=== PATIENT | male | born 1955 | race Caucasian/White ===

== ENCOUNTER 2024-07-14 19:07 | Inpatient (IN) | payer MEDICARE, OTHER ==
[~2024-07-14] VITALS: Ht 180.3 cm; Wt 67.1 kg
[2024-07-14] MEDS ORDERED: QUET50TA15 PO (19:32)
[2024-07-14] MEDS ORDERED: MAG HYDROX/AL HYDROX/SIMETH 30 ML LIQUID UDC PO PRN (23:45)
[2024-07-14] MEDS ORDERED: CLONAZEPAM 0.5 MG TABLET PO PRN (23:45)
[2024-07-14] MEDS ORDERED: MAGNESIUM HYDROXIDE 30 ML LIQUID UDC PO PRN (23:45)
[2024-07-15] MEDS: CLONAZEPAM 0.5 MG TABLET PO PRN (00:11)
[2024-07-15] MEDS: BLOOD SUGAR DIAGNOSTIC 1 EACH STRIP VI ONE (00:20)
[2024-07-15] MEDS: TEMAZEPAM 7.5 MG CAPSULE PO PRN ×2 (01:28→21:01)
[2024-07-15 09:15] VITALS: BP 160/97; TEMP 98; O2SAT 98
[2024-07-15] MEDS: OLANZAPINE 10 MG VIAL IM ONE ×2 (11:00→17:19)
[2024-07-15] MEDS: risperiDONE 0.5 MG TABLET PO SCH (14:03)
[2024-07-15 15:19] VITALS: BP 124/67; TEMP 98; O2SAT 98
[2024-07-15 20:00] VITALS: BP 109/80; TEMP 98.9; O2SAT 96
[2024-07-15] MEDS: QUETIAPINE FUMARATE 25 MG TABLET PO SCH (20:14)
[2024-07-15] MEDS ORDERED: LORAZEPAM 1 MG TABLET PO PRN (21:15)
[2024-07-16 07:55] LABS: BASOPHILS % (AUTO) 0.5 % (0.0-2.0); EOSINOPHILS # (AUTO) 0.2 K/uL (0.0-0.7); EOSINOPHILS % (AUTO) 2.2 % (0.0-7.0); HEMATOCRIT 35.6 % (36.7-47.1); HEMOGLOBIN 11.9 g/dL (12.5-16.3); LYMPHOCYTES # (AUTO) 1.4 K/uL (0.8-4.8); MEAN CORPUSCULAR HEMOGLOBIN 30.2 uug (23.8-33.4); MEAN CORPUSCULAR HGB CONC 34 g/dL (32.5-36.3); MEAN CORPUSCULAR VOLUME 90.1 fL (73.0-96.2); MONOCYTES # (AUTO) 0.9 K/uL (0.1-1.30); MONOCYTES % (AUTO) 9.9 % (0.0-11.0); NEUTROPHILS # (AUTO) 6.2 K/uL (1.8-8.9); NEUTROPHILS % (AUTO) 71.4 % (38.5-71.5); PLATELET COUNT (AUTO) 385 K/uL (152-348); RED BLOOD CELL COUNT(AUTO) 3.95 MIL/uL (4.06-5.63); RED CELL DISTRIBUTION WIDTH 13.9 % (12.1-16.2); WHITE BLOOD COUNT (AUTO) 8.6 K/uL (3.6-10.2)
[2024-07-16 08:03] LABS: DIFFERENTIAL COMMENT 1
[2024-07-16 08:05] LABS: ALBUMIN 3.8 g/dL (3.4-5.0); BILIRUBIN,TOTAL 0.6 mg/dL (0.2-1.0); CALCIUM 9.3 mg/dL (8.5-10.1); CREATININE 0.7 mg/dL (0.6-1.3); MAGNESIUM 1.8 mg/dL (1.8-2.4); PHOSPHOROUS 3.8 mg/dL (2.5-4.9); TOTAL PROTEIN, SERUM 7.5 g/dL (6.4-8.2)
[2024-07-16] MEDS: HALOPERIDOL LACTATE 5 MG/1 ML VIAL IM ONE (08:20)
[2024-07-16] MEDS: LORAZEPAM 2 MG/1 ML VIAL IM ONE (08:21)
[2024-07-16] MEDS: diphenhydrAMINE 50 MG/1 ML VIAL IV ONE (08:21)
[2024-07-16 08:23] LABS: THYROID STIMULATING HORMONE 0.721 mIU/mL (0.358-3.740)
[2024-07-16 08:29] VITALS: BP 131/80; TEMP 98; O2SAT 98
[2024-07-16] MEDS ORDERED: risperiDONE 1 MG TABLET PO SCH (09:00)
[2024-07-16] MEDS: POTASSIUM CHLORIDE 10 MEQ TAB.PRT.SR PO SCH (10:00)
[2024-07-16] MEDS: DIVALPROEX SPRINKLE 125 MG CAP.SPRINK PO SCH (14:24)
[2024-07-16] MEDS: POTASSIUM CHLORIDE 20 MEQ POWDER PACKET PO ONE ×2 (14:24→15:27)
[2024-07-16 15:13] VITALS: BP 110/69; TEMP 98; O2SAT 96
[2024-07-16] MEDS: risperiDONE 1 MG TABLET PO SCH (16:31)
[2024-07-16] MEDS: LORAZEPAM 1 MG TABLET PO PRN (16:33)
[2024-07-16 20:00] VITALS: BP 138/81; TEMP 98.1; O2SAT 97
[2024-07-17 08:27] VITALS: BP 148/70; TEMP 97.8; O2SAT 96
[2024-07-17 16:21] VITALS: BP 154/82; TEMP 97.9; O2SAT 97
[2024-07-17] MEDS: LORAZEPAM 1 MG TABLET PO ONE (18:53)
[2024-07-17] MEDS: QUETIAPINE FUMARATE 100 MG TABLET PO SCH (20:17)
[2024-07-17 20:27] VITALS: BP 138/86; TEMP 98; O2SAT 98
[2024-07-17] MEDS: diphenhydrAMINE 50 MG/1 ML VIAL IM ONE (22:31)
[2024-07-17] MEDS: LORAZEPAM 2 MG/1 ML VIAL IM ONE (22:31)
[2024-07-17] MEDS: HALOPERIDOL LACTATE 5 MG/1 ML VIAL IM ONE (22:31)
[2024-07-18] MEDS: risperiDONE 1 MG TABLET PO SCH (12:20)
[2024-07-18] MEDS: diphenhydrAMINE 50 MG/1 ML VIAL IM ONE (13:35)
[2024-07-18] MEDS: HALOPERIDOL LACTATE 5 MG/1 ML VIAL IM ONE (13:36)
[2024-07-18] MEDS: LORAZEPAM 2 MG/1 ML VIAL IM ONE (13:36)
[2024-07-18 16:44] VITALS: BP 125/78; TEMP 98; O2SAT 97
[2024-07-18 20:17] VITALS: BP 136/76; TEMP 98.1; O2SAT 96
[2024-07-19] MEDS: DIVALPROEX SPRINKLE 125 MG CAP.SPRINK PO SCH (12:20)
[2024-07-19 16:35] VITALS: BP 118/70; TEMP 98.1; O2SAT 97
[2024-07-19 20:23] VITALS: BP 124/76; TEMP 98.1; O2SAT 95
[2024-07-20 07:41] VITALS: BP 115/79; TEMP 98; O2SAT 96
[2024-07-20 15:47] VITALS: BP 107/71; TEMP 98; O2SAT 96
[2024-07-20 20:21] VITALS: BP 117/73; TEMP 98.1; O2SAT 95
[2024-07-21 08:56] VITALS: BP 110/61; TEMP 98.2; O2SAT 96
[2024-07-21 15:39] VITALS: BP 113/66; TEMP 98; O2SAT 96
[2024-07-21 17:42] LABS: BASOPHILS % (AUTO) 0.3 % (0.0-2.0); EOSINOPHILS # (AUTO) 0.1 K/uL (0.0-0.7); EOSINOPHILS % (AUTO) 0.9 % (0.0-7.0); HEMATOCRIT 39.5 % (36.7-47.1); HEMOGLOBIN 12.9 g/dL (12.5-16.3); LYMPHOCYTES # (AUTO) 1.4 K/uL (0.8-4.8); LYMPHOCYTES % (AUTO) 11.6 % (20.5-51.5); MEAN CORPUSCULAR HEMOGLOBIN 29.5 uug (23.8-33.4); MEAN CORPUSCULAR HGB CONC 33 g/dL (32.5-36.3); MEAN CORPUSCULAR VOLUME 90.5 fL (73.0-96.2); MONOCYTES # (AUTO) 0.9 K/uL (0.1-1.30); MONOCYTES % (AUTO) 7.4 % (0.0-11.0); NEUTROPHILS # (AUTO) 9.9 K/uL (1.8-8.9); NEUTROPHILS % (AUTO) 79.8 % (38.5-71.5); PLATELET COUNT (AUTO) 391 K/uL (152-348); RED BLOOD CELL COUNT(AUTO) 4.36 MIL/uL (4.06-5.63); RED CELL DISTRIBUTION WIDTH 14.2 % (12.1-16.2); WHITE BLOOD COUNT (AUTO) 12.4 K/uL (3.6-10.2)
[2024-07-21 17:43] LABS: DIFFERENTIAL COMMENT 1
[2024-07-21 17:47] LABS: AMMONIA < 10 umol/L (11-32)
[2024-07-21 17:50] LABS: ALANINE AMINOTRANSFERASE 35 U/L (16-63); ALBUMIN 3.8 g/dL (3.4-5.0); ALKALINE PHOSPHATASE 77 U/L (50-136); ASPARTATE AMINOTRANSFERASE 16 U/L (15-37); BILIRUBIN,TOTAL 0.5 mg/dL (0.2-1.0); CALCIUM 9.5 mg/dL (8.5-10.1); CARBON DIOXIDE 31 mmol/L (21-32); CHLORIDE 101 mmol/L (98-107); CREATININE 0.8 mg/dL (0.6-1.3); GLUCOSE 127 mg/dL (74-106); POTASSIUM 3.8 mmol/L (3.5-5.1); SODIUM SERUM 140 mmol/L (136-145); TOTAL PROTEIN, SERUM 7.9 g/dL (6.4-8.2); UREA NITROGEN, BLOOD 15 mg/dL (7-18); VALPROIC ACID 50 ug/mL (50-100)
[2024-07-21 20:00] VITALS: BP 117/69; TEMP 98.1; O2SAT 97
[2024-07-21 23:50] LABS: *BLOOD, URINE NEGATIVE (NEGATIVE); *CLARITY,URINE CLEAR (CLEAR); *COLOR,URINE YELLOW (YELLOW); *KETONES,URINE 1+ (NEGATIVE); *PROTEIN,URINE NEGATIVE (NEGATIVE); LEUKOCYTE ESTERASE ,URINE NEGATIVE (NEGATIVE); NITRITE, URINE NEGATIVE (NEGATIVE); UGLUCOSE NEGATIVE (NEGATIVE)
[2024-07-22 00:24] LABS: *BILIRUBIN,URIN 1+ (NEGATIVE)
[2024-07-22 00:32] LABS: RBC,URINE 0-3 /HPF (0-3); SQUAMOUS EPITHELIAL CELL,UR MODERATE /HPF (NONE SEEN)
[2024-07-22 00:33] LABS: BACTERIA,URINE RARE /HPF (NONE SEEN); MUCUS,URINE MODERATE /LPF (0-FEW)
[2024-07-22] MEDS: ENSURE ENLIVE (VAN) 240 ML LIQUID PO SCH (08:00)
[2024-07-22 08:52] VITALS: BP 136/62; TEMP 98; O2SAT 98
[2024-07-22 15:57] VITALS: BP 100/69; TEMP 98; O2SAT 98
[2024-07-22] MEDS: risperiDONE 2 MG TABLET PO SCH (16:27)
[2024-07-22 20:00] VITALS: BP 113/70; TEMP 97.6; O2SAT 99
[2024-07-23 07:56] VITALS: BP 163/96; TEMP 98; O2SAT 98
[2024-07-23 15:49] VITALS: BP 124/70; TEMP 98; O2SAT 98
[2024-07-24 07:47] VITALS: BP 112/75; TEMP 98.1; O2SAT 97
[2024-07-24 16:54] VITALS: BP 119/82; TEMP 98.1; O2SAT 97
[2024-07-25] MEDS: DIVALPROEX SPRINKLE 125 MG CAP.SPRINK PO SCH (08:16)
[2024-07-25 17:01] VITALS: BP 103/69; TEMP 98.1; O2SAT 97
[2024-07-26 08:02] VITALS: BP 108/74; TEMP 98.3; O2SAT 97
[2024-07-26 08:16] LABS: BASOPHILS # (AUTO) 0.1 K/UL (0.0-0.2); BASOPHILS % (AUTO) 0.7 % (0.0-2.0); DIFFERENTIAL COMMENT 0; EOSINOPHILS # (AUTO) 0.1 K/uL (0.0-0.7); EOSINOPHILS % (AUTO) 1.1 % (0.0-7.0); HEMATOCRIT 36.1 % (36.7-47.1); HEMOGLOBIN 12.1 g/dL (12.5-16.3); LYMPHOCYTES # (AUTO) 1.5 K/uL (0.8-4.8); LYMPHOCYTES % (AUTO) 15.2 % (20.5-51.5); MEAN CORPUSCULAR HEMOGLOBIN 30.8 uug (23.8-33.4); MEAN CORPUSCULAR HGB CONC 34 g/dL (32.5-36.3); MEAN CORPUSCULAR VOLUME 91.9 fL (73.0-96.2); MONOCYTES # (AUTO) 0.9 K/uL (0.1-1.30); MONOCYTES % (AUTO) 9.3 % (0.0-11.0); NEUTROPHILS # (AUTO) 7.1 K/uL (1.8-8.9); NEUTROPHILS % (AUTO) 73.7 % (38.5-71.5); PLATELET COUNT (AUTO) 227 K/uL (152-348); RED BLOOD CELL COUNT(AUTO) 3.93 MIL/uL (4.06-5.63); RED CELL DISTRIBUTION WIDTH 14.3 % (12.1-16.2); WHITE BLOOD COUNT (AUTO) 9.6 K/uL (3.6-10.2)
[2024-07-26 08:24] LABS: CALCIUM 9.1 mg/dL (8.5-10.1); CARBON DIOXIDE 28 mmol/L (21-32); CHLORIDE 102 mmol/L (98-107); CREATININE 0.6 mg/dL (0.6-1.3); GLUCOSE 107 mg/dL (74-106); PHOSPHOROUS 4.2 mg/dL (2.5-4.9); SODIUM SERUM 137 mmol/L (136-145); UREA NITROGEN, BLOOD 18 mg/dL (7-18); VALPROIC ACID 57 ug/mL (50-100)
[2024-07-26 08:31] LABS: POTASSIUM 4.3 mmol/L (3.5-5.1)
[2024-07-26 16:41] VITALS: BP 114/63; TEMP 98.1; O2SAT 98
[2024-07-26 20:14] VITALS: BP 118/71; TEMP 98.1; O2SAT 96
[2024-07-26] MEDS: OLANZAPINE 5 MG TABLET PO SCH (22:25)
[2024-07-27] MEDS: LORAZEPAM 1 MG TABLET PO PRN (04:55)
[2024-07-27 07:54] VITALS: BP 119/71; TEMP 98; O2SAT 96
[2024-07-27] MEDS: LORAZEPAM 0.5 MG TABLET PO PRN (08:30)
[2024-07-27 15:58] VITALS: BP 106/57; TEMP 98; O2SAT 98
[2024-07-27 20:06] VITALS: BP 116/66; TEMP 98.2; O2SAT 96
[2024-07-28 10:47] VITALS: BP 111/69; TEMP 98; O2SAT 99
[2024-07-28 15:38] VITALS: BP 116/68; TEMP 98; O2SAT 99
[2024-07-28 20:00] VITALS: BP 136/73; TEMP 98; O2SAT 92
[2024-07-29 08:03] VITALS: BP 125/68; TEMP 98; O2SAT 96
[2024-07-29 16:08] VITALS: BP 99/68; TEMP 98; O2SAT 98
[2024-07-29 20:00] VITALS: BP 124/87; TEMP 98; O2SAT 93
[2024-07-29] MEDS: ACETAMINOPHEN 325 MG TABLET PO PRN (21:32)
[2024-07-30 08:42] VITALS: BP 117/57; TEMP 98; O2SAT 98
== END 2024-07-30 14:15 | disposition home or self-care (01) | DRG 885 ==
LOC: ER 19:11 → GPS 20:45
PROVIDERS: ADMIT Psychiatry & Neurology Psychiatry; ATTEND Nurse Practitioner Acute Care
DX: F29 Unspecified psychosis not due to a substance or known physiological condition (principal); F03.C11 Unspecified dementia, severe, with agitation; F03.C3 Unspecified dementia, severe, with mood disturbance; D63.8 Anemia in other chronic diseases classified elsewhere; E87.6 Hypokalemia; E86.0 Dehydration; Z91.199 Patient's noncompliance with other medical treatment and regimen due to unspecified reason; Z88.0 Allergy status to penicillin; Z79.899 Other long term (current) drug therapy; Z78.1 Physical restraint status
CPT/HCPCS: 36415; 71045; 80164; 83735; 83921; 84100; 84443; 85025; A4606; A4663; C1758; J1200; J1630; J2060; J2358